=== PATIENT | male | born 1965 | race Caucasian/White ===

== ENCOUNTER 2017-01-18 10:08 | Day surgery (SDC) | payer BC ==
[~2017-01-18 10:08] MED LIST: RINGERS SOLUTION,LACTATED 1,000 ML IV PRN; ceFAZolin SODIUM 2 GM in DEXTROSE 5 % IN WATER 50 ML IV PRN
[2017-01-18] MEDS ORDERED: RINGERS SOLUTION,LACTATED 1,000 ML IV ONE (10:29)
[2017-01-18] MEDS ORDERED: BUPIVACAINE HCL/EPINEPHRINE 50 ML VIAL IJ ONE ×2 (11:24)
[2017-01-18] MEDS ORDERED: RINGERS SOLUTION,LACTATED 1,000 ML IV PRN (11:48)
[2017-01-18 12:50] VITALS: BP 111/71
--- NOTE | 2017-01-18 13:43 | OR ---
Operative Report - Dictated Report Narrative: OPERATIVE REPORT DATE OF OPERATION: 01/18/2017 PREOPERATIVE DIAGNOSIS: Right chest wall mass POSTOPERATIVE DIAGNOSIS: Lipoma of right chest wall (pathology pending) OPERATION: Excision of 4 x 3 cm lipoma of the right chest SURGEON: Teddy Roldan MD ANESTHESIA: MAC/local Paul Huff CRNA INDICATIONS FOR PROCEDURE: The patient is a 51-year-old male referred by Dr. Reagan. He has an enlarging and increasingly symptomatic mass on the right chest wall. Ultrasound suggests lipoma however was truly indeterminate FINDINGS: Benign-appearing lipomatous tissue 4 x 3 cm (pathology pending) NARRATIVE OF PROCEDURE: The patient was identified in the holding area, the surgical site was marked, and prior to the administration of anesthetic a multidisciplinary timeout was observed. With the patient in the left lateral position and after the administration of intravenous sedation the right chest was prepped with Betadine solution and the area around the lesion isolated with 4 sterile towels. The patient received 2 g of IV Ancef preoperatively. The remainder the patient was covered with sterile disposable drapes. A skin incision was outlined over the palpable mass in the area infiltrated with 0.5% Marcaine with epinephrine a 3 cm skin incision was made sharply. Dissection was carried into subcutaneous tissue with electrocautery until a self-contained lipomatous appearing mass was encountered. This was gradually dissected free from surrounding tissues using blunt and electrocautery dissection. The mass was removed intact and submitted to pathology. The wound was inspected for hemostasis which appeared complete. Subcutaneous tissue was reapproximated with interrupted sutures of 0 chromic. Skin was approximated with a running subcuticular suture of 4-0 Vicryl. The operative site was washed and dried. A dressing of Dermabond was applied. The operative procedure was terminated at this point. The patient tolerated the anesthetic and procedure well without complication. There was no measurable blood loss. The lipoma was submitted to pathology. 0.5% Marcaine with epinephrine was used for local anesthetic infiltration. The patient remained stable throughout a period of postoperative observation. He denied pain. Was able to tolerate po intake and was up without assistance. I shared the operative findings with him. He was discharged home with instructions to keep the wound dry for 48 hours but then may shower. He should avoid hazardous activity today but may return to normal activity tomorrow and advance diet as tolerated. He is to continue those medications as listed in the history and physical exam. He was given a prescription for Percocet 5/325 mg #10 1-2 po Q4-6hrs prn pain. He has phone numbers to call if needed for signs of wound infection or hematoma and a return office appointment was made for 01/28/2017. Reviewed and electronically signed
== END 2017-01-18 10:09 | disposition home or self-care (01) ==
LOC: AMB 10:08
PROVIDERS: ATTEND Surgery
PROC: 0JB60ZZ Excision of Chest Subcutaneous Tissue and Fascia, Open Approach (ICD-10-PCS; principal; 2017-01-18 11:30)
DX: D17.1 Benign lipomatous neoplasm of skin and subcutaneous tissue of trunk (principal); E66.01 Morbid (severe) obesity due to excess calories; Z68.42 Body mass index [BMI] 45.0-49.9, adult; F17.200 Nicotine dependence, unspecified, uncomplicated